=== PATIENT | male | born 2000 | race Caucasian/White ===

== ENCOUNTER 2021-04-01 16:49 | Emergency (ER) | payer OTHER, BC ==
[~2021-04-01] VITALS: Ht 185.4 cm; Wt 115.9 kg
[~2021-04-01 16:49] MED LIST: CEPHALEXIN500 M1 PO; NORCO 325 MG-51 TAB PO
[2021-04-01] MEDS ORDERED: CYCLOBENZAPRINE10 M1 PO (19:03)
[2021-04-01 19:15] VITALS: BP 133/75
== END 2021-04-01 19:15 | disposition home or self-care (01) ==
LOC: ED 16:49
DX: M54.6 Pain in thoracic spine (principal); M54.5 Low back pain; V48.5XXA Car driver injured in noncollision transport accident in traffic accident, initial encounter